=== PATIENT | female | born 1975 | race Caucasian/White ===

== ENCOUNTER 2020-08-28 07:05 | Emergency (ER) | payer BC ==
[2020-08-28] MEDS ORDERED: MEPERIDINE HCL 25 MG/ML SYR ONE ×2 (08:06→09:17)
[2020-08-28] MEDS ORDERED: LIDOCAINE 1% 20 ML MDV ONE (08:06)
--- NOTE | 2020-08-28 08:52 | ER ---
Nurse's Notes [facility] Name: Rosy Valente Age: 45 yrs Sex: Female : 1975 Arrival Date: 08/28/2020 Time: 07:06 Bed 2 Private MD: Diagnosis: Cutaneous abscess of chest wall Presentation: 08/28 07:14 Chief complaint: Patient states: "I have a cyst in the middle of my chest that my dog jd3 stepped on last night. it is now busted and causing a lot of pain.". Coronavirus screen: Client denies travel out of the [place] in the last 14 days. Ebola Screen: Patient negative for fever greater than or equal to 101.5 degrees Fahrenheit, and additional compatible Ebola Virus Disease symptoms. Initial Sepsis Screen: Does the patient meet any 2 criteria? No. Patient's initial sepsis screen is negative. Does the patient have a suspected source of infection? No. Patient's initial sepsis screen is negative. Risk Assessment: Do you want to hurt yourself or someone else? Patient reports no desire to harm self or others. Onset of symptoms was August 19, 2020. 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 - Social history:: Smoking status: Patient denies any tobacco usage or history of. - Family history:: not pertinent. - Hospitalizations: : No recent hospitalization is reported. Screenin:56 Abuse screen: Denies threats or abuse. Nutritional screening: No deficits noted. ll1 Tuberculosis screening: No symptoms or risk factors identified. Fall Risk None identified. Total Dong Fall Scale indicates No Risk (0-24 pts). Assessment: 07:30 General: Appears uncomfortable, Behavior is calm, cooperative, appropriate for age. ll1 Pain: Complains of pain in chest Aggravated by increased activity. Neuro: No deficits noted. Derm: Skin is pink, warm \\T\\ dry. Wound noted chest Wound is small. deep abscess to right inner breast. No drainage at this time. No fever Abscess located on chest. Vital Signs: 07:16 BP 123 / 99; Pulse 76; Resp 17 S; Temp 97.6(TE); Pulse Ox 99% on R/A; Weight 70.31 kg jd3 (R); Height 5 ft. 7 in. (170.18 cm) (R); Pain 9/10; 07:16 Body Mass Index 24.28 (70.31 kg, 170.18 cm) j ED Course: 07:06 Patient arrived in ED. am2 07:16 Triage completed. jd3 07:18 Arm band placed on. jd3 07:20 Bo Cristina, RN is Primary Nurse. ll1 07:20 Patient has correct armband on for positive identification. Bed in low position. Call ll1 light in reach. Side rails up X 1. Cardiac monitoring not applicable on this patient. 07:27 Bebeto Barba MD is Attending Physician. rn 08:51 Hector Mckeon MD is Referral Physician. rn 08:55 Bo Cristina, PALLAVI is Primary Nurse. ll1 08:55 Assist provider with I \\T\\ D: of an abscess on right breast Set up I\\T\\D tray. Performed by ll 1 Bebeto Barba MD Wound packed. iodoform gauze, Dressing with 4X4s, tape Patient tolerated well. 09:13 Patient did not have IV access during this emergency room visit. 1 Administered Medications: 07:49 Drug: Lidocaine (1 %) 1 vials {Note: AT B/S.} Volume: 20 ml; Route: Infiltration; bp 08:55 Follow up: Response: No adverse reaction; RASS: Alert and Calm (0) 1 07:52 Drug: Demerol (meperidine) 25 mg Route: IM; Site: Ventrogluteal RIGHT; ll1 08:55 Follow up: Response: No adverse reaction; RASS: Alert and Calm (0) 1 08:50 Drug: Demerol (meperidine) 25 mg Route: IM; Site: left vastus lateralis; 1 09:12 Follow up: Response: No adverse reaction; Pain is decreased; RASS: Alert and Calm (0) [facility] Outcome: 08:51 Discharge ordered by . rn 09:13 Discharged to home ambulatory. ll1 09:13 Condition: stable 09:13 Discharge instructions given to patient, Instructed on discharge instructions, follow up and referral plans. medication usage, wound care, Demonstrated understanding of instructions, follow-up care, medications, wound care, Prescriptions given X 1. 09:14 Patient left the ED. ll1 Signatures: Bebeto Barba MD MD rn Moreno, Amanda am2 Davies, Jonathon, RN RN jRafy Eckert RN RN Bo Starks RN RN ll1
--- NOTE | 2020-08-28 08:52 | EDPHYS ---
Physician Documentation [facility] Name: Rosy Valente Age: 45 yrs Sex: Female : 1975 Arrival Date: 08/28/2020 Time: 07:06 Bed 2 Private MD: ED Physician Bebeto Barba HPI: 08/28 08:48 This 45 yrs old Female presents to ER via Ambulatory with complaints of cyst, rn abscess. 08:48 the patient presents with a swollen area of the chest. Onset: The symptoms/episode rn began/occurred yesterday. Possible cause(s): unknown. Modifying factors: the symptoms are alleviated by nothing, the symptoms are aggravated by squeezing the lesion and expressing the contents, touching. Severity of symptoms: At their worst the symptoms were moderate, in the emergency department the symptoms are unchanged. The patient has not experienced similar symptoms in the past. Reports has had cyst on chest for years, told was cyst after mammogram was negative, last night began to swell and have more pain. No fever. + small purulent drainage. . 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 - Social history:: Smoking status: Patient denies any tobacco usage or history of. - Family history:: not pertinent. - Hospitalizations: : No recent hospitalization is reported. ROS: 08:48 Constitutional: Negative for fever, chills, and weight loss, Skin: + abscess on chest rn wall Exam: 08:48 Constitutional: This is a well developed, well nourished patient who is awake, alert, rn and in no acute distress. Chest/axilla: + [id number] area of fluctuance and tenderness right parasternal abutting right breast, + smal amount of purulent and serous drainage. Vital Signs: 07:16 BP 123 / 99; Pulse 76; Resp 17 S; Temp 97.6(TE); Pulse Ox 99% on R/A; Weight 70.31 kg jd3 (R); Height 5 ft. 7 in. (170.18 cm) (R); Pain 12/29; 07:16 Body Mass Index 24.28 (70.31 kg, 170.18 cm) jd3 Procedures: 08:48 I \T\ D: Incision and drainage was performed for an abscess of the right chest Prepped rn with Betadine, Anesthetized with 5 ml's 1% Lidocaine. Incised with #11 blade. Drained moderate amount purulent fluid. serosanguinous fluid. Packed with iodoform gauze, Dressing: sterile 4x4 gauze, the patient tolerated the procedure well, RN Bo in room as template fitter entire time.. MDM: 07:27 Patient medically screened. rn 08:48 Differential diagnosis: abscess, cellulitis. Data reviewed: vital signs, nurses notes, rn and as a result, I will discharge patient. Counseling: I had a detailed discussion with the patient and/or guardian regarding: the historical points, exam findings, and any diagnostic results supporting the discharge/admit diagnosis, the need for outpatient follow up, to return to the emergency department if symptoms worsen or persist or if there are any questions or concerns that arise at home. Response to treatment: the patient's symptoms have markedly improved after treatment, and as a result, I will discharge patient. Special discussion: I discussed with the patient/guardian in detail that at this point there is no indication for admission to the hospital. It is understood, however, that if the symptoms persist or worsen the patient needs to return immediately for re-evaluation. Based on the history and exam findings, there is no indication for further emergent testing or inpatient evaluation. I discussed with the patient/guardian the need to see the general surgeon for further evaluation of the symptoms. 08/28 07:43 Order name: Incision \T\ Drainage Setup; Complete Time: 07:50 rn Administered Medications: 07:49 Drug: Lidocaine (1 %) 1 vials {Note: AT B/S.} Volume: 20 ml; Route: Infiltration; bp 08:55 Follow up: Response: No adverse reaction; RASS: Alert and Calm (0) ll1 07:52 Drug: Demerol (meperidine) 25 mg Route: IM; Site: Ventrogluteal RIGHT; ll1 08:55 Follow up: Response: No adverse reaction; RASS: Alert and Calm (0) ll1 08:50 Drug: Demerol (meperidine) 25 mg Route: IM; Site: left vastus lateralis; ll1 09:12 Follow up: Response: No adverse reaction; Pain is decreased; RASS: Alert and Calm (0) ll1 Disposition: 08/28/20 08:51 Discharged to Home. Impression: Cutaneous abscess of chest wall. - Condition is Stable. - Discharge Instructions: Skin Abscess, Incision and Drainage, Wound Packing, Incision and Drainage, Care After. - Prescriptions for Bactrim DS 800- 160 mg Oral Tablet - take 1 tablet by ORAL route every 12 hours for 10 days; 20 tablet. - Medication Reconciliation Form, Thank You Letter, Antibiotic Education, Prescription Opioid Use form. - Follow up: Hector Mckeon MD; When: 2 - 3 days; Reason: Recheck today's complaints, Re-evaluation by your physician. - Problem is new. - Symptoms have improved. Signatures: Bebeto Barba MD MD rn Davies, Jonathon, RN RN jd3 Peltier, Brian, RN RN bp Lewis, Lynsay, RN RN ll1 Corrections: (The following items were deleted from the chart) 09:14 08:51 08/28/2020 08:51 Discharged to Home. Impression: Cutaneous abscess of chest wall. ll1 Condition is Stable. Forms are Medication Reconciliation Form, Thank You Letter, Antibiotic Education, Prescription Opioid Use. Follow up: Hector Mckeon; When: 2 - 3 days; Reason: Recheck today's complaints, Re-evaluation by your physician. Problem is new. Symptoms have improved. rn
[2020-08-28 09:28] VITALS: BP 123/99; TEMP 97.6; O2SAT 99
== END 2020-08-28 09:14 | disposition home or self-care (01) ==
LOC: ER 07:05
PROC: 0J960ZZ Drainage of Chest Subcutaneous Tissue and Fascia, Open Approach (ICD-10-PCS; principal; 2020-08-28)
DX: L02.213 Cutaneous abscess of chest wall (principal); Z88.5 Allergy status to narcotic agent
CPT/HCPCS: 10060; J2175 ×2; 96372; 99283